=== PATIENT | female | born 1985 | race Caucasian/White ===

== ENCOUNTER 2023-09-19 19:22 | Inpatient (IN) ==
[2023-09-19] MEDS ORDERED: LIDOCAINE 1% LOCAL 20 ML VIAL INFIL PRN (19:37)
[2023-09-19] MEDS ORDERED: OXYTOCIN 30 UNITS/NSS 30 UNITS/500 ML BAG IV PRN (19:37)
[2023-09-19] MEDS ORDERED: Patient's HEIGHT &/or WEIGHT Needed SCH (19:45)
[2023-09-19 20:07] LABS: Hematocrit (blood only) 34.9 % (37.0-47.0); Mean Corpuscular Hemoglobin 30.8 pg (25.0-34.0); Mean Corpuscular Hgb Conc 34.4 g/dL (32.0-36.0); Mean Corpuscular Volume 89.5 fL (80.0-100.0); Mean Platelet Volume 11.8 fL (9.4-12.4); Platelet Count 218 K/uL (130-400); RDW Coefficient of Variation 13.2 % (11.5-14.5); RDW Standard Deviation 43.2 fL (36.4-46.3); White Blood Count 9.57 K/ul (4.8-10.8)
[2023-09-19] MEDS: PENICILLIN GK 6 MU in DEXTROSE 5% 250 ML IV STA (20:13)
[2023-09-19] MEDS: LACTATED RINGER'S 1,000 ML IV PRN (20:13)
[2023-09-19] MEDS: miSOPROStoL 50 MCG TAB PO SCH (20:23)
[2023-09-19] MEDS ORDERED: SODIUM CHLORIDE 0.9% 250 ML IV PRN (20:36)
[2023-09-19] MEDS ORDERED: miSOPROStoL 50 MCG TAB PO SCH (21:00)
[2023-09-20] MEDS: PENICILLIN GK 3 MU in DEXTROSE 5% 100 ML IV PRN (00:05)
[2023-09-20] MEDS: DINOPROSTONE 10 MG INSERT PV ONE (01:07)
[2023-09-20] MEDS: BUTORPHANOL TARTRATE 2 MG/ML VIAL IV PRN (01:36)
[2023-09-20] MEDS: BUTORPHANOL TARTRATE 2 MG/ML VIAL ONE (01:45)
[2023-09-20] MEDS: LABETALOL HCL 100 MG TAB PO SCH (03:45)
[2023-09-20] MEDS: miSOPROStoL 50 MCG TAB PO ONE (11:04)
--- NOTE | 2023-09-20 15:36 | Obstetrical Progress Note ---
Date of Service September 20, 2023 Assessment & Plan (1) Rupture of membranes with delay of delivery: Plan reviewed heart rate tracing and contraction pattern. plan of care for cytotec administration Admission and Anticipated Discharge Date Admission Date: September 19, 2023 Subjective reviewed heart rate tracing and contraction pattern. plan of care for cytotec administration Results & Data Vital Signs (Past 12 Hours) Vital Signs Temp Pulse Resp BP 09/20/23 15:00 18 09/20/23 15:00 18 09/20/23 14:30 18 09/20/23 14:30 18 09/20/23 14:12 86 132/87 09/20/23 14:00 18 09/20/23 14:00 18 09/20/23 13:20 18 09/20/23 13:20 36.8 C 18 09/20/23 13:00 18 09/20/23 13:00 18 09/20/23 12:00 18 09/20/23 12:00 18 09/20/23 11:45 77 144/85 H 09/20/23 11:30 18 09/20/23 11:30 18 09/20/23 11:08 83 123/78 09/20/23 11:00 18 09/20/23 11:00 18 09/20/23 10:49 18 09/20/23 10:49 36.8 C 18 09/20/23 10:30 18 09/20/23 10:30 18 09/20/23 10:00 18 09/20/23 10:00 09/20/23 09:54 75 151/99 H 09/20/23 09:30 18 09/20/23 09:30 18 09/20/23 09:01 80 135/90 09/20/23 09:00 18 09/20/23 09:00 18 09/20/23 08:30 18 09/20/23 08:30 18 09/20/23 08:00 18 09/20/23 08:00 36.6 C 18 09/20/23 07:26 76 135/94 09/20/23 05:12 83 136/96 09/20/23 04:41 82 154/99 H 09/20/23 04:11 82 152/100 H 09/20/23 03:45 36.4 C L 09/20/23 03:41 97 H 157/109 H
[2023-09-21] MEDS: LIDOCAINE 2%/EPINEPHRINE 1:200,000 20 ML PF ONE (00:46)
[2023-09-21] MEDS: SODIUM CHLORIDE 0.9% PF INJ 10 ML VIAL ONE (00:46)
[2023-09-21] MEDS: BUPIVACAINE 0.25% PF 30 ML VIAL ONE (00:46)
[2023-09-21] MEDS: fentANYL 2 MCG/ML BUPIVacaine 0.125%-NSS 100ML BAG ONE (00:49)
--- NOTE | 2023-09-21 00:56 | Anesthesiology Consultation ---
Date of Service September 21, 2023 Assessment & Plan Chart Review Chart Review: Patient NOT seen in Pre Admission Testing and Acceptable Risk for Labor Epidural Consults Requested none ASA ASA2 Proposed Anesthesia Anesthesia Type: Labor Epidural Risk / Benefits Reviewed With: PT / POA / Parent / Guardian, Accepts Plan and Informed Consent Obtained Additional Notes Patient had labs at [facility] this week. She has a diagnosis of type I vWBD since 2008. She denies recent history of mucocutaneous bleeding (gums/nose). She has never had a DDAVP challenge and does not routinely receive DDAVP for procedures. Labs from [facility] showed no quantitative deficiency in vWB factor or prolongation of the PTT, as is common during . Discussed risks and benefits of epidural anesthesia with the patient, given her current normal vWB labs, I do not feel that she is at increased risk of epidural hematoma and the patient agrees to proceed with epidural labor analgesia. History Height/Weight Height: 5 ft 5 in Weight: 86.183 kg Allergies Allergy/AdvReac Type Severity Reaction Status Date / Time sulfamethoxazole Allergy Rash Verified 09/19/23 19:43 [From Bactrim] trimethoprim [From Bactrim] Allergy Rash Verified 09/19/23 19:43 Medications Home Medications Medication Instructions Recorded Confirmed Last Taken [id number] 1 mg 1 tab PO DAILY 09/19/22 09/19/23 09/19/23 tablet sertraline 50 mg tablet (Zoloft) 100 mg PO DAILY 09/19/22 09/19/23 09/17/23 clobetasol 0.05 % scalp solution topical 1XD PRN Outbreak 09/15/23 09/10/23 20:00 diphenhydramine HCl 25 mg capsule 25 mg PO HS PRN Sleep 09/15/23 09/19/23 09/18/23 (Benadryl) docusate sodium 100 mg capsule 100 mg PO DAILY 09/15/23 09/19/23 09/19/23 (Colace) magnesium oxide 500 mg capsule 500 mg PO DAILY 09/15/23 09/19/23 09/18/23 omeprazole 20 mg capsule,delayed 20 mg PO DAILY 09/15/23 09/19/23 09/19/23 release Active Medications Generic Name Dose Route Start Last Admin Trade Name Freq PRN Reason Stop Dose Admin Butorphanol Tartrate 1 mg 09/20/23 01:09 09/20/23 22:37 Butorphanol Tartrate 2 Mg/Ml Vial IV 10/20/23 01:08 1 mg Q2HWA PRN Administration Pain Lactated Ringer's 1,000 mls @ 125 mls/hr 09/19/23 19:37 09/20/23 00:08 Lr IV 09/21/23 19:36 125 mls/hr .Q8H PRN Infusion L&D Protocol Protocol Penicillin G Potassium 3 mu/ 106 mls @ 100 mls/hr 09/19/23 22:37 09/20/23 22:16 Dextrose IV 09/29/23 22:36 100 mls/hr Q4H PRN Administration GBS(+) Until Delivery Labetalol HCl 100 mg 09/20/23 03:40 09/20/23 20:54 Labetalol Hcl 100 Mg Tab PO 10/20/23 03:39 100 mg BID DONNIE Administration Misoprostol 50 mcg 09/19/23 20:00 09/20/23 19:49 Misoprostol 50 Mcg Tab PO 10/19/23 19:59 50 mcg Q4H DONNIE Administration Past Medical History Medical History (Updated 09/20/23 @ 15:39 by Shantanu Sanchez MD) Psoriasis Von Willebrand disease Exercise / Class Metabolic Activity II 4-5 Yardwork/Stairs/Walk up hill Past Family History Family History Grandfather (Paternal) Diabetes Grandfather (Maternal) Hypertension Grandfather (Paternal) Hypertension Grandmother (Paternal) Hypertension Past Surgical History Surgical History H/O wisdom tooth extraction Past Anesthesia History No Hx of Anesthesia Complications and No Family Hx of Anesthesia Complications History of PONV No Hx of PONV and No Hx of Motion Sickness Social History Smoking Status: Never smoker Hx Alcohol Use: No Hx Substance Use: No substance use type: does not use Physical Exam Vital Signs Last Vital Signs Temp 36.7 C 09/20/23 23:26 Pulse 93 H 09/21/23 00:51 Resp 18 09/20/23 21:00 BP 140/91 09/21/23 00:51 Pulse Ox 97 09/21/23 00:49 ENMT Mouth: no dentition abnormality Thyromental Distance: > or= 3.5 Finger Breadths Mallampati Class: II Neck normal visual inspection Respiratory normal respiratory effort Auscultation: lungs clear to auscultation bilaterally Cardiovascular Rate/Rhythm: regular rate and regular rhythm Psychiatric Orientation: alert Testing Laboratory Results 09/19/23 19:52 Blood Type A Negative 09/19/23 19:52 Antibody Screen NEGATIVE 09/19/23 19:52
[2023-09-21] MEDS ORDERED: DESMOPRESSIN ACETATE 20 MCG in SODIUM CHLORIDE 0.9% 50 ML IV PRN (01:01)
[2023-09-21] MEDS: fentaNYL citrate PF 100 MCG/2 ML VIAL ONE (01:04)
[2023-09-21] MEDS: ePHEDrine sulfate 50 MG/ML AMP ONE (01:04)
[2023-09-21] MEDS ORDERED: fentANYL 2 MCG/ML BUPIVacaine 0.125%-NSS 100ML BAG EPI PRN (01:06)
[2023-09-21] MEDS ORDERED: NALOXONE HCL 1 MG in SODIUM CHLORIDE 0.9% 1,000 ML IV PRN (01:06)
[2023-09-21] MEDS ORDERED: ROPIVACAINE 0.5% PF 5 MG/ML 20 ML VIAL EPI PRN (01:06)
[2023-09-21] MEDS ORDERED: NALOXONE HCL 0.4 MG/1 ML VIAL/CARP IV PRN (01:06)
[2023-09-21] MEDS ORDERED: LIDOCAINE 2% MPF LOCAL 5 ML VIAL EPI PRN (01:06)
[2023-09-21] MEDS ORDERED: BUPIVACAINE 0.25% PF 30 ML VIAL EPI PRN (01:06)
[2023-09-21] MEDS ORDERED: NALBUPHINE HCL 5 MG in SYRINGE 0 ML IV PRN (01:06)
[2023-09-21] MEDS ORDERED: fentaNYL citrate PF 100 MCG/2 ML VIAL EPI PRN (01:06)
[2023-09-21] MEDS ORDERED: ePHEDrine sulfate 50 MG/ML AMP IV PRN (01:06)
[2023-09-21] MEDS ORDERED: diphenhydrAMINE 50 MG/ML VIAL IV PRN (01:06)
[2023-09-21] MEDS ORDERED: SODIUM CHLORIDE 0.9% PF INJ 10 ML VIAL EPI PRN (01:06)
[2023-09-21] MEDS: OXYTOCIN 30 UNITS/NSS 30 UNITS/500 ML BAG IV PRN (01:51)
[2023-09-21] MEDS ORDERED: ACETAMINOPHEN W/CODEINE #3 1 TAB PO PRN (09:05)
[2023-09-21] MEDS ORDERED: OXYTOCIN 30 UNITS/NSS 30 UNITS/500 ML BAG IV PRN (09:05)
[2023-09-21] MEDS ORDERED: bisacodyL 10 MG SUPP PR PRN (09:05)
[2023-09-21] MEDS ORDERED: oxyCODONE/ACETAMINOPHEN 5mg/325mg TAB PO PRN (09:05)
[2023-09-21] MEDS ORDERED: HYDROCORTISONE ACETATE 25 MG SUPP PR PRN (09:05)
--- NOTE | 2023-09-21 09:12 | Delivery Summary ---
Vaginal Delivery Summary Date of Service September 21, 2023 Vaginal Delivery Summary Patient has been followed in the office for care and delivery. She has had an uncomplicated course. She is well dated with a first trimester ultrasound. She was in and out of labor for several days until finally rupturing her membranes. She was sent to maternity membrane rupture was confirmed by an amnio sure. She was 39 weeks. An induction was undertaken. She first had a dose of oral Cytotec. Followed by Cervidil tape. Followed several doses of oral Cytotec. She eventually got about 4 cm dilated requested and received epidural for pain control. Membranes ruptured's had ruptured spontaneously. She was augmented with IV Pitocin. Went to full dilatation. Pushed out a live male with about 1 hour pushing. Delivered direct occiput anterior position over an intact perineum. Infant was suctioned. Shoulders were delivered without difficulty. Cord was allowed to pulse for 1 full minute. Cord was then clamped and cut by the father. Cord blood was taken. With IV Pitocin running the placenta was removed intact. Inspection of the perineum and vagina revealed a left-sided superficial sulcus tear at about 4:00. The top of the tear was identified. And then sutured with a running 2-0 Vicryl out to beyond the hymenal ring. Following this hemostasis was excellent. Sponges were removed. Estimated blood loss was 100 mL.
[2023-09-21] MEDS: BENZOCAINE 20% SPRY 85 APPLN/85 GM CAN EXT PRN (10:11)
[2023-09-21] MEDS: IBUPROFEN 600 MG TAB PO PRN (10:11)
[2023-09-21] MEDS: SODIUM CHLORIDE 0.9% PF INJ 10 ML VIAL EPI STA (10:16)
[2023-09-21] MEDS: LIDOCAINE 2%/EPINEPHRINE 1:200,000 20 ML PF EPI STA (10:16)
[2023-09-21] MEDS: BUPIVACAINE 0.25% PF 30 ML VIAL EPI STA (10:16)
[2023-09-21] MEDS: fentaNYL citrate PF 100 MCG/2 ML VIAL EPI STA (10:16)
[2023-09-21] MEDS ORDERED: Nursing to Pharmacy Communication SCH (10:30)
[2023-09-21] MEDS ORDERED: SERTRALINE HCL 100 MG TABLET PO SCH (10:30)
--- NOTE | 2023-09-21 11:19 | Anesthesia Procedure Note ---
Date of Service September 21, 2023 Anesthesia Post Epidural Note Vital Signs Vital Signs: Temp Pulse Resp BP Pulse Ox 36.9 C 98 H 20 135/81 86 L 09/21/23 10:27 09/21/23 10:57 09/21/23 10:57 09/21/23 10:57 09/21/23 08:47 Pain Intensity Abdomen: Pain Intensity: 0 Notes Mental Status: alert / awake / arousable and participated in evaluation Nausea / Vomiting: adequately controlled Pain: adequately controlled Airway Patency, RR, SpO2: stable & adequate BP & HR: stable & adequate Hydration State: stable & adequate Neuraxial Anesthesia: was administered and sensory block resolved Anesthetic Complications: no major complications apparent and Pt Satisfied with anesthetic care Epidural: Removed without complications and With tip intact
[2023-09-21] MEDS: PANTOprazole 40 MG TAB PO SCH (12:53)
[2023-09-21] MEDS: LIDOCAINE 2% JELLY 5 ML TUBE EXT ONE (13:58)
[2023-09-21] MEDS: ACETAMINOPHEN 325 MG TAB PO PRN (17:47)
[2023-09-21] MEDS: DOCUSATE SODIUM 100 MG CAP PO SCH (21:30)
[2023-09-21] MEDS: SERTRALINE HCL 100 MG TABLET PO SCH (21:47)
[2023-09-22 06:32] LABS: Hematocrit (blood only) 31.4 % (37.0-47.0); Hemoglobin 10.4 g/dl (12.0-16.0); Mean Corpuscular Hemoglobin 30.2 pg (25.0-34.0); Mean Corpuscular Hgb Conc 33.1 g/dL (32.0-36.0); Mean Corpuscular Volume 91.3 fL (80.0-100.0); Mean Platelet Volume 11.7 fL (9.4-12.4); Platelet Count 195 K/uL (130-400); RDW Coefficient of Variation 13.6 % (11.5-14.5); RDW Standard Deviation 45.2 fL (36.4-46.3); Red Blood Count 3.44 M/uL (4.20-5.40); White Blood Count 10.23 K/ul (4.8-10.8)
[2023-09-22] MEDS: PRENATAL VITAMIN 1 TAB PO SCH (08:34)
--- NOTE | 2023-09-22 09:48 | Obstetrical Progress Note ---
Date of Service September 22, 2023 Assessment & Plan Admission and Anticipated Discharge Date Admission Date: September 19, 2023 Subjective abdomen soft and non tender no calf tenderness ambulating well will remove catheter this am vaginal bleeding scant hgb 10.4 Results & Data Vital Signs (Past 12 Hours) Vital Signs Temp Pulse Resp BP Pulse Ox O2 Del Method 09/22/23 08:33 118/87 09/22/23 08:30 36.7 C 09/22/23 05:00 36.7 C 89 18 104/72 98 Room Air 09/21/23 23:30 36.5 C 96 H 18 104/73 99 Room Air
[2023-09-22] MEDS: MEASLES, MUMPS & RUBELLA VIRUS VACCINE (MMR) VIAL SQ ONE (20:35)
[2023-09-22] MEDS: DIPHTHER/TETAN/PERTUS Vaccine (Tdap, Adol/Adult) 0.5mL IM ONE (20:35)
[2023-09-22] MEDS: bisacodyL 5 MG TABEC PO SCH (20:41)
[2023-09-23 06:41] LABS: Hematocrit (blood only) 28.7 % (37.0-47.0); Hemoglobin 9.6 g/dl (12.0-16.0)
--- NOTE | 2023-09-23 09:24 | Obstetrical Progress Note ---
Date of Service September 23, 2023 Assessment & Plan Admission and Anticipated Discharge Date Admission Date: September 19, 2023 Subjective abdomen soft and non tender no calf tenderness ambulating well vaginal bleeding scant hgb 9.6 Results & Data Vital Signs (Past 12 Hours) Vital Signs Temp Pulse Resp BP Pulse Ox O2 Del Method 09/23/23 08:10 36.8 C 84 16 129/88 99 Room Air 09/22/23 23:00 36.9 C 88 20 111/77 97 Room Air
== END 2023-09-23 12:43 | disposition home or self-care (01) | DRG 807 ==
LOC: 4S1 19:22 → OPB 19:22 → 4S1 19:37 → 4E2 09-21 14:32

== ENCOUNTER 2023-10-15 21:44 | Observation (INO) ==
[2023-10-15] MEDS: ONDANSETRON INJ 2 MG/ML 2 ML VIAL IV STA (22:06)
[2023-10-15 22:37] LABS: Basophils # (auto) 0.03 K/uL (0.00-0.20); Basophils % (auto) 0.4 %; Eosinophils # (auto) 0.17 K/uL (0.00-0.50); Eosinophils % (auto) 2.3 %; Hematocrit (blood only) 39.8 % (37.0-47.0); Hemoglobin 13.2 g/dl (12.0-16.0); Immature Granulocytes # (auto) 0.02 K/uL (0.01-0.20); Immature Granulocytes % (auto) 0.3 %; Lymphocytes # (auto) 1.45 K/uL (1.20-3.40); Lymphocytes % (auto) 19.3 %; Mean Corpuscular Hemoglobin 29.3 pg (25.0-34.0); Mean Corpuscular Hgb Conc 33.2 g/dL (32.0-36.0); Mean Corpuscular Volume 88.2 fL (80.0-100.0); Mean Platelet Volume 10.3 fL (9.4-12.4); Monocytes # (auto) 0.72 K/uL (0.11-0.59); Monocytes % (auto) 9.6 %; Neutrophils # (auto) 5.12 K/uL (1.40-6.50); Neutrophils % (auto) 68.1 %; Platelet Count 256 K/uL (130-400); RDW Standard Deviation 38.8 fL (36.4-46.3); Red Blood Count 4.51 M/uL (4.20-5.40); White Blood Count 7.51 K/ul (4.8-10.8)
--- NOTE | 2023-10-15 22:40 | Emergency Department Note ---
History of Present Illness General Chief complaint: Abdominal Pain Stated complaint: ABD PAIN, 3 WKS POSTPARTOM, VOMIT Time Seen by Provider: 10/15/23 22:25 History of Present Illness Maximum Pain Intensity: 9 This is a 38-year-old female presenting to the emergency department for evaluation of epigastric abdominal pain. The patient is 3 weeks and had vomiting today which exacerbated her symptoms. The patient was seen in this department 2 days ago with identical complaints where blood work and CT of the chest, abdomen, and pelvis did not show distinct cause of her symptoms. She did feel well at the time of discharge, and did not have any return of symptoms until today. Patient is scheduled in 2 days with her PCP. Patient did take Tylenol today without any relief of her epigastric pain. She is not having any lower pain. No fevers or chills. She has some mild vaginal discharge that is essentially been normal since her uncomplicated delivery. Patient rates her current discomfort a 9/10. Home Medications Medication Instructions Recorded Confirmed Type diphenhydramine HCl 25 mg capsule 25 mg PO HS PRN Sleep 09/15/23 10/15/23 History (Benadryl) docusate sodium 100 mg capsule 100 mg PO DAILY 09/15/23 10/15/23 History (Colace) magnesium oxide 500 mg capsule 500 mg PO DAILY 09/15/23 10/15/23 History omeprazole 20 mg capsule,delayed 20 mg PO DAILY 09/15/23 10/15/23 History release clobetasol 0.05 % scalp solution 1 applic topical BID PRN Itching 10/12/23 10/15/23 History dicloxacillin 500 mg capsule 500 mg PO Q6 10/12/23 10/15/23 History vits no.130-ferrous fum 1 tab PO DAILY 10/12/23 10/15/23 History 27 mg iron-folic acid 800 mcg tablet ( Vitamin) sertraline 100 mg tablet 100 mg PO DAILY 10/15/23 10/15/23 History Allergies Allergy/AdvReac Type Severity Reaction Status Date / Time sulfamethoxazole Allergy Intermediate Rash Verified 10/15/23 22:56 [From Bactrim] trimethoprim [From Bactrim] Allergy Intermediate Rash Verified 10/15/23 22:56 Past Med/Surg History Medical History Psoriasis Von Willebrand disease Surgical History H/O wisdom tooth extraction Family History Grandfather (Paternal) Diabetes Grandfather (Maternal) Hypertension Grandfather (Paternal) Hypertension Grandmother (Paternal) Hypertension Social History Smoking Status: Never smoker Second Hand Exposure: No; Hx Alcohol Use: Yes Hx Substance Use: No Preferred Language: Upper Sorbian Communication Ability: Effective 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 Lasting Required: No Beliefs That Will Affect Care: None marital status: Current Living Situation: Spouse Current Living Situation Comment: Lives with Sebastián, 2 cats and a dog current occupational status: unemployed Feels Safe at Home: Yes Safety Concerns: Feels Safe At This Time Diet: regular Gender Identity: Female Assistive Devices: None Review of Systems A total of 10 systems reviewed and were otherwise negative Physical Exam Vital Signs Vital Signs - 24 hr 10/15/23 21:46 10/15/23 22:24 10/15/23 22:32 Temperature 36.9 C Temperature Source Oral Pulse Rate 84 74 Pulse Rate [Apical] 72 Pulse Rhythm Regular Pulse Strength Normal Respiratory Rate 20 18 Respiratory Effort / Characteristics Non-Labored Spontaneous Non-Labored Respiratory Depth Normal Normal Respiratory Pattern Regular Blood Pressure 127/91 Blood Pressure [Left Arm] 135/91 Blood Pressure Mean 103 Blood Pressure Mean [Left Arm] 105 Blood Pressure Position Sitting Pulse Oximetry 98 99 Oxygen Delivery Method Room Air Room Air Sepsis Recent Fever Within 48 Hours No Sepsis New/Unexplained Change in Mental Status N/A Sepsis Action Taken by Nursing No Action Required 10/16/23 00:24 10/16/23 00:42 10/16/23 02:00 Temperature Temperature Source Pulse Rate Pulse Rate [Apical] 82 78 62 Pulse Rhythm Pulse Strength Respiratory Rate 18 20 18 Respiratory Effort / Characteristics Non-Labored Non-Labored Non-Labored Respiratory Depth Normal Normal Normal Respiratory Pattern Regular Regular Regular Blood Pressure Blood Pressure [Left Arm] 123/87 123/87 127/89 Blood Pressure Mean Blood Pressure Mean [Left Arm] 99 99 101 Blood Pressure Position Pulse Oximetry 97 97 98 Oxygen Delivery Method Room Air Room Air Room Air Sepsis Recent Fever Within 48 Hours Sepsis New/Unexplained Change in Mental Status Sepsis Action Taken by Nursing VITALS: Vitals are noted on the nurse's note and reviewed by myself. Vital signs stable. GENERAL: Well-developed, well-nourished, white female, who is in no acute distress and resting comfortably. Patient is cooperative with the examination. HEAD: Normocephalic atraumatic. HEART: Regular rate and rhythm without murmurs gallops or rubs. LUNGS: Clear to auscultation bilaterally without wheezes, rales or rhonchi. No retractions or accessory muscle use. ABDOMEN: Positive normal bowel sounds x 4. Soft, with mild epigastric tenderness. No rebound or guarding. No lower tenderness. MUSCULOSKELETAL: No muscle atrophy, erythema, or edema noted. Full range of motion in all extremities. Course Administered Medications Sodium Chloride (Nss) 1,000 mls @ 125 mls/hr IV .Q8H [facility] Stop: 11/15/23 01:29 Last Admin: 10/16/23 01:49 Dose: 125 mls/hr Documented By: LILIA Morphine Sulfate (Morphine Sulfate 4 Mg/Ml 1 Ml Carp\Vial) 4 mg IV Q30M PRN PRN Reason: Pain Stop: 10/29/23 22:50 Last Admin: 10/15/23 23:14 Dose: 4 mg Documented By: LILIA Discontinued Medications Al Hydrox/Mg Hydrox/Simethicone (Aluminum/Magnesium Susp 30 Ml Udc) 30 ml PO NOW STA Stop: 10/15/23 22:35 Last Admin: 10/15/23 22:45 Dose: 30 ml Documented By: LILIA Sodium Chloride (Nss) 1,000 mls @ 999 mls/hr IV .Q1H1M DONNIE Stop: 10/15/23 23:45 Last Infusion: 10/16/23 00:10 Dose: Infused Documented By: Admin: 10/15/23 22:45 Dose: 999 mls/hr Documented By: LILIA Pantoprazole Sodium 40 mg/ (Syringe) 10 mls @ 5 mls/min IV NOW ONE Stop: 10/15/23 22:35 Last Admin: 10/15/23 22:45 Dose: 5 mls/min Documented By: LILIA Piperacillin Sod/Tazobactam Sod (Zosyn) 4.5 gm in 100 mls @ 200 mls/hr IV NOW ONE Stop: 10/16/23 00:58 Last Infusion: 10/16/23 02:22 Dose: Infused Documented By: Admin: 10/16/23 01:49 Dose: 200 mls/hr Documented By: LILIA Ketorolac Tromethamine (Ketorolac 30 Mg/Ml Vial) 30 mg IV NOW STA Stop: 10/15/23 22:35 Last Admin: 10/15/23 22:45 Dose: 30 mg Documented By: LILIA Ondansetron HCl (Ondansetron Inj 2 Mg/Ml 2 Ml Vial) 4 mg IV NOW STA Stop: 10/15/23 21:50 Last Admin: 10/15/23 22:06 Dose: 4 mg Documented By: LILIA Medical Decision Making Differential Diagnosis Differential diagnosis: Etiologies such as biliary colic, cholecystitis, hepatitis, pancreatitis, cardiac disease, pancreatitis, gastritis, peptic ulcer disease, appendicitis, cystitis, diverticulitis, mesenteric ischemia, inflammatory bowel disease, ileus, bowel obstruction, testicular/adnexal torsion, aortic pathology, shingles, as well as others were considered Laboratory Data 10/15/23 22:07 10/15/23 22:07 Lab Results 10/15/23 10/16/23 Range/Units 22:07 Unknown WBC 7.51 (4.8-10.8) K/ul RBC 4.51 (4.20-5.40) M/uL Hgb 13.2 (12.0-16.0) g/dl Hct 39.8 (37.0-47.0) % MCV 88.2 (80.0-100.0) fL MCH 29.3 (25.0-34.0) pg MCHC 33.2 (32.0-36.0) g/dL RDW Std Deviation 38.8 (36.4-46.3) fL RDW Coeff of Oswaldo 12.0 (11.5-14.5) % Plt Count 256 (130-400) K/uL MPV 10.3 (9.4-12.4) fL Immature Gran % (Auto) 0.3 % Neut % (Auto) 68.1 % Lymph % (Auto) 19.3 % Kings % (Auto) 9.6 % Eos % (Auto) 2.3 % Baso % (Auto) 0.4 % Neut # (Auto) 5.12 (1.40-6.50) K/uL Lymph # (Auto) 1.45 (1.20-3.40) K/uL Kings # (Auto) 0.72 H (0.11-0.59) K/uL Eos # (Auto) 0.17 (0.00-0.50) K/uL Baso # (Auto) 0.03 (0.00-0.20) K/uL Immature Gran # (Auto) 0.02 (0.01-0.20) K/uL Sodium 139 (136-145) mmol/L Potassium 3.7 (3.5-5.1) mmol/L Chloride 103 (98-107) mmol/L Carbon Dioxide 26 (21-32) mmol/L Anion Gap 10 (3-11) BUN 13 (6-23) mg/dl Creatinine 0.99 (0.6-1.2) mg/dl Est Cr Clr Drug Dosing 70.7 ml/min Est GFR ( Amer) 85.0 ml/min Est GFR (Non-Af Amer) 73.3 ml/min BUN/Creatinine Ratio 13.1 (10-20) Glucose 128 H (70-99(Fasting)) mg/dl Calcium 9.6 (8.6-10.3) mg/dl Total Bilirubin 0.9 (0.2-1.0) mg/dl AST 390 H (13-39) U/L ALT 220 H (7-52) U/L Alkaline Phosphatase 502 H (34-104) U/L Total Protein 7.6 (6.0-8.3) gm/dl Albumin 4.4 (3.4-5.0) gm/dl Globulin 3.2 (2.5-4.0) gm/dl Albumin/Globulin Ratio 1.4 (0.9-2) Lipase 165 H (11-82) U/L Urine Color Dark Yellow Urine Appearance Cloudy A (Clear) Urine pH 7.0 (4.5-7.5) Ur Specific Usk 1.023 (1.000-1.030) Urine Protein Trace H (Negative) Urine Glucose (UA) Negative (Negative) Urine Ketones Trace H (Negative) Urine Blood 2+ H (Negative) Urine Nitrite Negative (Negative) Urine Bilirubin Negative (Negative) Urine Urobilinogen Negative (Negative) Ur Leukocyte Esterase 3+ H (Negative) Urine WBC (Auto) >30 H (0-5) /hpf Urine RBC (Auto) 0-4 (0-4) /hpf U Hyaline Cast (Auto) 0 (0-5) /lpf U Epithel Cells (Auto) >30 H (0-5) /lpf Urine Bacteria (Auto) 1+ H (Negative) Urine Yeast Not Reportable Urine Opiates Screen Neg (Neg) Ur Methadone, Qual Neg (Neg) Urine Barbiturates Neg (Neg) Ur Phencyclidine (PCP) Neg (Neg) U Amphetamin/Meth Scrn Neg (Neg) MDMA (Ecstasy) Screen Neg (Neg) U Benzodiazepines Scrn Neg (Neg) Ur Cocaine Metabolite Neg (Neg) U Marijuana (THC) Screen Neg (Neg) Imaging Data Radiologist's Impression: Liver Ultrasound 10/15/23 22:51 Exam(s): US ABDOMEN LIMITED EXAM: US Abdomen Limited, Right Upper Quadrant CLINICAL HISTORY: Reason for exam: epigastric pain, elevated lft, post . TECHNIQUE: Real-time ultrasound of the right upper quadrant with image documentation. COMPARISON: No relevant prior studies available. FINDINGS: Liver: Unremarkable. No mass. No intrahepatic bile duct dilation. Gallbladder: Gallstones. A few small scattered gallbladder polyps. Mild gallbladder wall thickening at 3 mm. Small amount of pericholecystic fluid. Common bile duct: Unremarkable as visualized. No stones. No dilation. Pancreas: Unremarkable as visualized. Right kidney: No stones. No solid mass. No hydronephrosis. IMPRESSION: Gallstones with mild gallbladder wall thickening and pericholecystic fluid. The findings are concerning for acute cholecystitis. Electronically signed by: Isaías Lockwood MD 10/16/23 00:14 AM Cholangiopancreatography MRI 10/16/23 00:24 Exam(s): MRI MRCP EXAM: MR Abdomen Without Intravenous Contrast, MRCP Protocol CLINICAL HISTORY: Reason for exam: elevated lfts, acute amanda on u/s. TECHNIQUE: Multiplanar magnetic resonance images of the abdomen without intravenous contrast using MRCP protocol. COMPARISON: No relevant prior studies available. FINDINGS: Bile ducts: Unremarkable. No stones. No ductal dilation. Gallbladder: Numerous small gallstones. Abnormal gallbladder wall edema and trace amount of pericholecystic fluid. Liver: Unremarkable. Pancreas: Unremarkable. No ductal dilation. Spleen: Unremarkable. No splenomegaly. Adrenals: Unremarkable. No mass. Kidneys and ureters: Unremarkable. No hydronephrosis. Stomach and bowel: Unremarkable. No obstruction. IMPRESSION: Gallstones with gallbladder wall edema and small amount of pericholecystic fluid. The findings are very concerning for acute cholecystitis. No bile duct dilatation. Electronically signed by: Isaías Lockwood MD 10/16/23 02:18 AM MDM Narrative Physical exam and history were performed. Nursing notes, EMR, and Medication List were personally reviewed. No social concerns were identified as barriers to patients care. Patient appears to have upper abdominal pain bringing her to the ER. IV access was established and labs were obtained. Patient was hydrated with normal saline and given IV Zofran, IV Toradol, IV Protonix, and a GI cocktail. Patient's blood work is as above and was reviewed. She does not have a significantly elevated white blood cell count, gross anemia, bandemia, or significant electrolyte imbalance. Transaminases are notably elevated with an AST of 390, ALT 220, and alk phos of 502. This is significantly worse than a few days ago at previous visit. Lipase is 165. Because of her symptoms and labs she was sent to ultrasound for further evaluation. Patient's ultrasound was reviewed by myself and radiology and is concerning for acute cholecystitis. I did reach out to both the on-call surgical team and the on-call hospitalist team. Recommendation was for MRCP which does confirm the cholecystitis. The patient was given Zosyn here in the ER, as well as as needed morphine. Please see the hospitalist team and surgical team dictations for further patient course, plan, disposition. The chart was completed utilizing [employer] Speech Voice Recognition Software. Grammatical errors, random word insertions, pronoun errors, and incomplete sentences are an occasional consequence of this system due to software limitations, ambient noise, and hardware issues. Any formal questions or concerns about the content, text, or information contained within the body of this dictation should be directly addressed to the provider for clarification. . Impression & Plan Cholecystitis, Abdominal pain Discharge Plan Visit Data Chief Complaint: Abdominal Pain Stated Complaint: ABD PAIN, 3 WKS POSTPARTOM, VOMIT ED Provider: Dillan Lee ED Midlevel Provider: Preston Garcia Discharge Problem: Cholecystitis, Abdominal pain Forms Stand Alone Forms: My [facility] Prescriptions Prescriptions: No Action diphenhydramine HCl [Benadryl] 25 mg Capsule 25 mg PO HS PRN (Reason: Sleep) docusate sodium [Colace] 100 mg Capsule 100 mg PO DAILY omeprazole 20 mg Capsule,Delayed Release(Dr/Ec) 20 mg PO DAILY magnesium oxide 500 mg Capsule 500 mg PO DAILY dicloxacillin 500 mg capsule 500 mg PO Q6 Rx Instructions: STARTED 10/09/23 FOR 14 DAYS. clobetasol 0.05 % solution 1 applic TOPICAL BID PRN (Reason: Itching) Vitamin 27 mg iron- 800 mcg tablet 1 tab PO DAILY sertraline 100 mg tablet 100 mg PO DAILY Referrals Referrals: Britni Loredo DO [Primary Care Provider] -
[2023-10-15] MEDS: PANTOprazole 40 MG in SYRINGE 0 ML IV ONE (22:45)
[2023-10-15] MEDS: ALUMINUM/MAGNESIUM SUSP 30 ML UDC PO STA (22:45)
[2023-10-15] MEDS: KETOROLAC 30 MG/ML VIAL IV STA (22:45)
[2023-10-15] MEDS: SODIUM CHLORIDE 0.9% 1,000 ML IV SCH (22:45)
[2023-10-15 22:46] LABS: Albumin Globulin Ratio 1.4 (0.9-2); Albumin Level 4.4 gm/dl (3.4-5.0); BUN Creatinine Ratio 13.1 (10-20); Bilirubin,Total 0.9 mg/dl (0.2-1.0); Calcium 9.6 mg/dl (8.6-10.3); Creatinine Clr Calc Pharmacy 70.7 ml/min; Est GFR (Non-African American) 73.3 ml/min; Globulin 3.2 gm/dl (2.5-4.0); Potassium 3.7 mmol/L (3.5-5.1); Total Protein 7.6 gm/dl (6.0-8.3)
[2023-10-15] MEDS: MoRPHine SULFATE 4 MG/ML 1 ML CARP\\VIAL IV PRN (23:14)
--- NOTE | 2023-10-16 00:15 | Ultrasound Report ---
Exam(s): US ABDOMEN LIMITED EXAM: US Abdomen Limited, Right Upper Quadrant CLINICAL HISTORY: Reason for exam: epigastric pain, elevated lft, post . TECHNIQUE: Real-time ultrasound of the right upper quadrant with image documentation. COMPARISON: No relevant prior studies available. FINDINGS: Liver: Unremarkable. No mass. No intrahepatic bile duct dilation. Gallbladder: Gallstones. A few small scattered gallbladder polyps. Mild gallbladder wall thickening at 3 mm. Small amount of pericholecystic fluid. Common bile duct: Unremarkable as visualized. No stones. No dilation. Pancreas: Unremarkable as visualized. Right kidney: No stones. No solid mass. No hydronephrosis. IMPRESSION: Gallstones with mild gallbladder wall thickening and pericholecystic fluid. The findings are concerning for acute cholecystitis. Electronically signed by: Isaías Lockwood MD 10/16/23 00:14 AM
[2023-10-16 00:54] LABS: Appearance Urine Cloudy (Clear); Bacteria Urine Automated 1+ (Negative); Bilirubin Urine Negative (Negative); Blood Urine 2+ (Negative); Color Urine Dark Yellow; Epithelial Cell Urine Auto >30 /lpf (0-5); Glucose Urine UA Negative (Negative); Ketones Urine Trace (Negative); Leukocyte Esterase Urine 3+ (Negative); Nitrite Urine Negative (Negative); Protein Urine Trace (Negative); RBC Urine Automated 0-4 /hpf (0-4); Specific Gravity Urine 1.023 (1.000-1.030); Urobilinogen Urine Negative (Negative); WBC Urine Automated >30 /hpf (0-5)
[2023-10-16 01:03] LABS: Amphetamines+Metham, Urine Neg (Neg); Barbiturates, Urine Neg (Neg); Benzodiazepine, Urine Neg (Neg); Cocaine, Urine Neg (Neg); MDMA (Ecstacy), Urine Neg (Neg); Marijuana, Urine Neg (Neg); Methadone, Urine Neg (Neg); Opiate, Urine Neg (Neg); Phencyclidine, Urine Neg (Neg)
[2023-10-16 01:12] LABS: Cast Urine Automated 0 /lpf (0-5)
--- NOTE | 2023-10-16 01:16 | Surgery Consultation ---
Date of Consultation October 16, 2023 Assessment & Plan (1) Cholecystitis: I discussed the case with the treating clinician in the emergency department he has requested hospitalist admission for this patient. In light of the patient's rising LFTs the hospitalist have requested an MRCP be performed to evaluate for possible choledocholithiasis prior to admission being undertaken If patient is noted to have choledocholithiasis on her MRCP she will require transfer to a facility where ERCP services are available Would recommend keeping the patient n.p.o. Would recommend providing IV fluid for hydration Would recommend providing analgesics Would recommend providing antiemetics Would recommend initiating antibiotics in the form of Zosyn Would recommend repeating LFTs the morning of 10/16/2023 Does appear that the patient has a slight pancreatitis so we will repeat labs as noted above. In addition, we will keep the patient n.p.o. and provide IV fluid as stated above. Patient's MRCP is negative for choledocholithiasis she will likely require cholecystectomy. The patient does have a history of von Willebrand's disease and we we will alert the attending physician of this condition to see if hematology evaluation is needed prior to her undergoing cholecystectomy Would recommend utilizing SCDs for DVT prevention, no chemical means as she will likely need surgical or procedural intervention Additional recommendations be forthcoming based on her clinical course as unfolds Supervising Physician Co-Signing Physician Notes Patient is planned for laparoscopic cholecystectomy. The consent has been obtai kat and is on the chart. History of Present Illness Reason for Consultation: Cholecystitis History of Present Illness This is a 38-year-old female who is 3 weeks . The patient notes that predating her she was having some postprandial pain in her upper abd omen that would come and go in a random fashion and was not very severe. Since the patient has delivered her child she has been having worsening pain in her upper abdomen specifically noting it is in the entire upper abdomen in a bandlike fashion particularly in the right upper quadrant and epigastric areas. The patient was seen in the emergency department on 10/12/2023. During this emergency department visit the patient had labs and imaging which I independently reviewed. The patient had a CT scan of the abdomen pelvis which showed no infectious or inflammatory findings in the abdomen or pelvis, specifically noting an unremarkable gallbladder. Patient also had a CT scan of the chest that showed no evidence of pulmonary emboli or pneumonia. Labs during this visit included CBC with hemoglobin, hematocrit, white blood cell count, platelet count were all normal. Chemistry profile showed sodium was 140 with a potassium of 3.4. Her BUN and creatinine were normal. During this visit her bilirubin and ALT were noted to be normal. There was a slight elevation of her AST at 64 and her alkaline phosphatase was elevated at 196. The patient was felt to be stable for discharge home. The patient return to the emergency department due to persistent and worsening pain as described above. She notes that the pain does not radiate and she does not note any other modifying factors. She has had associated nausea and vomiting but she denies any fevers, shakes, or chills. She has never had any abdominal surgeries in the past. Since arrival to the hospital this evening the patient has had labs and imaging which independent reviewed. The patient did have a right upper quadrant abdominal ultrasound. This showed the patient had gallstones and some gallbladder polyps. There is gallbladder wall thickening with a gallbladder wall measuring 3 mm. There is also pericholecystic fluid noted and the interpreting radiologist felt that this represented acute cholecystitis. There is no dilatation of the common bile duct and there was no choledocholithiasis noted on this study. Labs included CBC her white blood cell count, hemoglobin, hematocrit, and platelet count were all normal. Chemistry profile showed sodium and potassium along with the BUN and creatinine were normal. The patient's total bilirubin was normal however her AST and ALT were elevated at 390 and 220 respectively. She also had an elevated alkaline phosphatase at 502. Patient in addition, has had a slight elevation of her lipase at 165. Urinalysis did show 3+ leukocyte Estrace. The urine specimen was negative for nitrites or pyuria. Concerning the patient's past medical history she does note a history of von Willebrand's disease that was diagnosed when she was in her 20s. She notes that this time she was experiencing easy bruisability which prompted hematology evaluation diagnosing this condition. Concerning past surgical history she has never had any surgery other than wisdom teeth extraction. Concerning social history she does not smoke Concerning family history there is no family history of gallbladder disease. At the time of my interview the patient was resting comfortably in bed and she was in no distress. Allergies Allergy/AdvReac Type Severity Reaction Status Date / Time sulfamethoxazole Allergy Intermediate Rash Verified 10/15/23 22:56 [From Bactrim] trimethoprim [From Bactrim] Allergy Intermediate Rash Verified 10/15/23 22:56 Home Medications Medication Instructions Recorded Confirmed Type diphenhydramine HCl 25 mg capsule 25 mg PO HS PRN Sleep 09/15/23 10/15/23 History (Benadryl) docusate sodium 100 mg capsule 100 mg PO DAILY 09/15/23 10/15/23 History (Colace) magnesium oxide 500 mg capsule 500 mg PO DAILY 09/15/23 10/15/23 History omeprazole 20 mg capsule,delayed 20 mg PO DAILY 09/15/23 10/15/23 History release clobetasol 0.05 % scalp solution 1 applic topical BID PRN Itching 10/12/23 10/15/23 History dicloxacillin 500 mg capsule 500 mg PO Q6 10/12/23 10/15/23 History vits no.130-ferrous fum 1 tab PO DAILY 10/12/23 10/15/23 History 27 mg iron-folic acid 800 mcg tablet ( Vitamin) sertraline 100 mg tablet 100 mg PO DAILY 10/15/23 10/15/23 History Patient History Medical History GERD (gastroesophageal reflux disease) Psoriasis Von Willebrand disease Surgical History H/O wisdom tooth extraction Family History Grandfather (Paternal) Diabetes Grandfather (Maternal) Hypertension Grandfather (Paternal) Hypertension Grandmother (Paternal) Hypertension Social History Smoking Status: Never smoker Second Hand Exposure: No; Hx Alcohol Use: Yes Hx Substance Use: No Preferred Language: Colombian Communication Ability: Effective Hearing Ability: Normal 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 Beliefs That Will Affect Care: None marital status: Current Living Situation: Spouse Current Living Situation Comment: Lives with Sebastián, 2 cats and a dog current occupational status: unemployed Feels Safe at Home: Yes Diet: regular Gender Identity: Female Assistive Devices: None Review of Systems Constitutional: no fever and no chills Eyes: + corrective lenses Ear, Nose, Mouth, Throat: no hearing loss Respiratory: no cough and no dyspnea Cardiovascular: no chest pain Gastrointestinal: as per Subjective / HPI Genitourinary: no dysuria Musculoskeletal: no back pain Integumentary: no rash Neurologic: no localized weakness Physical Exam Constitutional: WD/WN, vitals as above Eyes: + anicteric sclerae Wears glasses ENMT: Ears: no hearing impairment and no external ear abnormality Mouth: no oropharynx abnormality No sublingual jaundice noted Neck: trachea midline Respiratory: normal respiratory effort; no respiratory distress and no labored breathing Cardiovascular: Rate/Rhythm: regular rate and regular rhythm Gastrointestinal (Abdomen): Abdomen is soft and nondistended. There is no rebound tenderness or guarding. The patient did have some pain with palpation in the epigastric area as well as the right upper quadrant. Musculoskeletal: No calf tenderness Skin: no jaundice Neurologic: moves all extremities Psychiatric: A+Ox3, euthymic affect Results & Data Vital Signs (Past 12 Hours) Vital Signs Temp Pulse Pulse Resp BP BP Pulse Ox 10/16/23 00:42 78 20 123/87 97 10/16/23 00:24 82 18 123/87 97 10/15/23 22:32 74 10/15/23 22:24 72 18 135/91 99 10/15/23 21:46 36.9 C 84 20 127/91 98 O2 Del Method 10/16/23 00:42 Room Air 10/16/23 00:24 Room Air 10/15/23 22:32 10/15/23 22:24 Room Air 10/15/23 21:46 Room Air PG Care Time/CCT Total # of Minutes Spent Total Time Spent with Patient: Total time spent is greater than 50% in coordination of care (as documented) at patient's floor/unit and/or counseling patient: Coding Level of Care Code 46224 IN/OBS CONSULT LVL 5,80M Diagnoses Cholecystitis K81.9
[2023-10-16] MEDS: SODIUM CHLORIDE 0.9% 1,000 ML IV SCH (01:49)
[2023-10-16] MEDS: PIPERACILLIN/TAZOBACTAM 4.5 GM/100 ML BAG IV ONE (01:49)
--- NOTE | 2023-10-16 02:19 | Magnetic Resonance Report ---
Exam(s): MRI MRCP EXAM: MR Abdomen Without Intravenous Contrast, MRCP Protocol CLINICAL HISTORY: Reason for exam: elevated lfts, acute amanda on u/s. TECHNIQUE: Multiplanar magnetic resonance images of the abdomen without intravenous contrast using MRCP protocol. COMPARISON: No relevant prior studies available. FINDINGS: Bile ducts: Unremarkable. No stones. No ductal dilation. Gallbladder: Numerous small gallstones. Abnormal gallbladder wall edema and trace amount of pericholecystic fluid. Liver: Unremarkable. Pancreas: Unremarkable. No ductal dilation. Spleen: Unremarkable. No splenomegaly. Adrenals: Unremarkable. No mass. Kidneys and ureters: Unremarkable. No hydronephrosis. Stomach and bowel: Unremarkable. No obstruction. IMPRESSION: Gallstones with gallbladder wall edema and small amount of pericholecystic fluid. The findings are very concerning for acute cholecystitis. No bile duct dilatation. Electronically signed by: Isaías Lockwood MD 10/16/23 02:18 AM
--- NOTE | 2023-10-16 02:53 | History & Physical Report ---
Date of Service October 16, 2023 Assessment & Plan (1) Cholecystitis: (2) Abnormal LFTs: (3) Elevated lipase: (4) GERD (gastroesophageal reflux disease): Plan Acute cholecystitis- AST 390, ALT 220, alkaline phosphatase 502 and lipase 165 Laboratories had been essentially normal 2 days previously when seen in the ED Liver ultrasound consistent with acute cholecystitis MRCP shows acute cholecystitis with normal common bile duct N.p.o. Zosyn 4.5 g IV every 8 hours Pantoprazole 40 mg IV daily NSS + KCl 20 mEq at 100 mL/h Zofran 4 mg IV every 6 hours as needed Morphine sulfate 4 mg IV every 3 hours as needed for moderate to severe pain Patient has been seen by general surgery in the emergency department 3 weeks - Breast pumping as needed History of Present Illness Chief Complaint: The patient presents to the emergency department with complaint of abdominal pain, nausea and vomiting, symptoms that initially caused her to present to the emergency department 2 days ago with normal workup at that time. Primary Care Provider: Britni Loredo DO The patient is a 38-year-old female with a past medical history including von Willebrand disease, GERD and depression, who is 3 weeks , who presents to the emergency department with symptoms of severe epigastric and right upper quadrant pain, nausea and vomiting. She was initially seen at the emergency department 2 days ago for similar symptoms, with negative workup at that time. Liver tests are now abnormal, and liver ultrasound this evening was consistent with acute cholecystitis, and MRCP performed was also consistent with acute cholecystitis, and had normal common bile duct without stones Allergies Allergy/AdvReac Type Severity Reaction Status Date / Time sulfamethoxazole Allergy Intermediate Rash Verified 10/15/23 22:56 [From Bactrim] trimethoprim [From Bactrim] Allergy Intermediate Rash Verified 10/15/23 22:56 Home Medications Medication Instructions Recorded Confirmed Type diphenhydramine HCl 25 mg capsule 25 mg PO HS PRN Sleep 09/15/23 10/15/23 History (Benadryl) docusate sodium 100 mg capsule 100 mg PO DAILY 09/15/23 10/15/23 History (Colace) magnesium oxide 500 mg capsule 500 mg PO DAILY 09/15/23 10/15/23 History omeprazole 20 mg capsule,delayed 20 mg PO DAILY 09/15/23 10/15/23 History release clobetasol 0.05 % scalp solution 1 applic topical BID PRN Itching 10/12/23 10/15/23 History dicloxacillin 500 mg capsule 500 mg PO Q6 10/12/23 10/15/23 History vits no.130-ferrous fum 1 tab PO DAILY 10/12/23 10/15/23 History 27 mg iron-folic acid 800 mcg tablet ( Vitamin) sertraline 100 mg tablet 100 mg PO DAILY 10/15/23 10/15/23 History Past Med/Surg History Medical History (Updated 10/16/23 @ 04:07 by Odell Sherman MD) GERD (gastroesophageal reflux disease) Psoriasis Von Willebrand disease Surgical History H/O wisdom tooth extraction Family History Grandfather (Paternal) Diabetes Grandfather (Maternal) Hypertension Grandfather (Paternal) Hypertension Grandmother (Paternal) Hypertension Social History Smoking Status: Never smoker Second Hand Exposure: No; Hx Alcohol Use: Yes Hx Substance Use: No Preferred Language: Lithuanian Communication Ability: Effective 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 Ability: Normal 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 Beliefs That Will Affect Care: None marital status: Current Living Situation: Spouse Current Living Situation Comment: Lives with Sebastián, 2 cats and a dog current occupational status: unemployed Feels Safe at Home: Yes Safety Concerns: Feels Safe At This Time Diet: regular Gender Identity: Female Assistive Devices: None Review of Systems Review of Systems: The patient denies chest pain, palpitations, shortness of breath, dyspnea on exertion, cough, lower extremity swelling, sore throat, fevers, chills, sweats, blood in urine or stool, dysuria, urinary frequency or urgency, lightheadedness, dizziness, headache, memory loss, loss of consciousness, rash, abnormal bruising or bleeding, imbalance, focal or generalized weakness, numbness or tingling in arms or legs, generalized arthralgias or myalgias, neck pain, or night sweats. The review of systems is otherwise negative other than for that already noted above, and at least 10 systems have been reviewed. Physical Exam Physical Exam: The patient is awake, alert and oriented 3, well developed and well nourished, normocephalic and atraumatic, lying in bed and in no acute distress. HEENT--PERRL, EOMI, mucous membranes and oropharynx mildly dry. Neck--supple. No JVD. No bruits. Thyroid normal, trachea midline, no adenopathy. Heart--normal S1 and S2. No murmurs, rubs or gallops. Lungs--clear bilaterally, no respiratory distress, no accessory muscle use. Abdomen--normal bowel sounds and soft. Nontender post pain medication. Nondistended, no hernias or masses, no organomegaly. Extremities--no cyanosis or clubbing. No edema. Dermatologic--normal skin turgor, normal color, no abnormal lymph nodes, no rash. Neurologic--cranial nerves II through XII grossly intact. Rheumatologic--normal range of motion. Psychiatric--normal affect. Results & Data Results & Data Vital Signs (Past 12 Hours) Vital Signs Temp Pulse Pulse Resp BP BP Pulse Ox 10/16/23 02:00 62 18 127/89 98 10/16/23 00:42 78 20 123/87 97 10/16/23 00:24 82 18 123/87 97 10/15/23 22:32 74 10/15/23 22:24 72 18 135/91 99 10/15/23 21:46 36.9 C 84 20 127/91 98 O2 Del Method 10/16/23 02:00 Room Air 10/16/23 00:42 Room Air 10/16/23 00:24 Room Air 10/15/23 22:32 10/15/23 22:24 Room Air 10/15/23 21:46 Room Air Laboratory Results Laboratory Results WBC 7.51 K/ul (4.8-10.8) 10/15/23 22:07 RBC 4.51 M/uL (4.20-5.40) 10/15/23 22:07 Hgb 13.2 g/dl (12.0-16.0) 10/15/23 22:07 Hct 39.8 % (37.0-47.0) 10/15/23 22:07 MCV 88.2 fL (80.0-100.0) 10/15/23 22:07 MCH 29.3 pg (25.0-34.0) 10/15/23 22:07 MCHC 33.2 g/dL (32.0-36.0) 10/15/23 22:07 RDW Std Deviation 38.8 fL (36.4-46.3) 10/15/23 22:07 RDW Coeff of Oswaldo 12.0 % (11.5-14.5) 10/15/23 22:07 Plt Count 256 K/uL (130-400) 10/15/23 22:07 MPV 10.3 fL (9.4-12.4) 10/15/23 22:07 Immature Gran % (Auto) 0.3 % 10/15/23 22:07 Neut % (Auto) 68.1 % 10/15/23 22:07 Lymph % (Auto) 19.3 % 10/15/23 22:07 [place]ata % (Auto) 9.6 % 10/15/23 22:07 Eos % (Auto) 2.3 % 10/15/23 22:07 Baso % (Auto) 0.4 % 10/15/23 22:07 Neut # (Auto) 5.12 K/uL (1.40-6.50) 10/15/23 22:07 Lymph # (Auto) 1.45 K/uL (1.20-3.40) 10/15/23 22:07 [place]apata # (Auto) 0.72 K/uL (0.11-0.59) H 10/15/23 22:07 Eos # (Auto) 0.17 K/uL (0.00-0.50) 10/15/23 22:07 Baso # (Auto) 0.03 K/uL (0.00-0.20) 10/15/23 22:07 Immature Gran # (Auto) 0.02 K/uL (0.01-0.20) 10/15/23 22:07 Sodium 139 mmol/L (136-145) 10/15/23 22:07 Potassium 3.7 mmol/L (3.5-5.1) 10/15/23 22:07 Chloride 103 mmol/L (98-107) 10/15/23 22:07 Carbon Dioxide 26 mmol/L (21-32) 10/15/23 22:07 Anion Gap 10 (3-11) 10/15/23 22:07 BUN 13 mg/dl (6-23) 10/15/23 22:07 Creatinine 0.99 mg/dl (0.6-1.2) 10/15/23 22:07 Est Cr Clr Drug Dosing 70.7 ml/min 10/15/23 22:07 Est GFR ( Amer) 85.0 ml/min 10/15/23 22:07 Est GFR (Non-Af Amer) 73.3 ml/min 10/15/23 22:07 BUN/Creatinine Ratio 13.1 (10-20) 10/15/23 22:07 Glucose 128 mg/dl (70-99(Fasting)) H 10/15/23 22:07 Calcium 9.6 mg/dl (8.6-10.3) 10/15/23 22:07 Total Bilirubin 0.9 mg/dl (0.2-1.0) 10/15/23 22:07 AST 390 U/L (13-39) H 10/15/23 22:07 ALT 220 U/L (7-52) H 10/15/23 22:07 Alkaline Phosphatase 502 U/L (34-104) H 10/15/23 22:07 Total Protein 7.6 gm/dl (6.0-8.3) 10/15/23 22:07 Albumin 4.4 gm/dl (3.4-5.0) 10/15/23 22:07 Globulin 3.2 gm/dl (2.5-4.0) 10/15/23 22:07 Albumin/Globulin Ratio 1.4 (0.9-2) 10/15/23 22:07 Lipase 165 U/L (11-82) H 10/15/23 22:07 Urine Color Dark Yellow 10/16/23 Unknown Urine Appearance Cloudy (Clear) A 10/16/23 Unknown Urine pH 7.0 (4.5-7.5) 10/16/23 Unknown Ur Specific [place] 1.023 (1.000-1.030) 10/16/23 Unknown Urine Protein Trace (Negative) H 10/16/23 Unknown Urine Glucose (UA) Negative (Negative) 10/16/23 Unknown Urine Ketones Trace (Negative) H 10/16/23 Unknown Urine Blood 2+ (Negative) H 10/16/23 Unknown Urine Nitrite Negative (Negative) 10/16/23 Unknown Urine Bilirubin Negative (Negative) 10/16/23 Unknown Urine Urobilinogen Negative (Negative) 10/16/23 Unknown Ur Leukocyte Esterase 3+ (Negative) H 10/16/23 Unknown Urine WBC (Auto) >30 /hpf (0-5) H 10/16/23 Unknown Urine RBC (Auto) 0-4 /hpf (0-4) 10/16/23 Unknown U Hyaline Cast (Auto) 0 /lpf (0-5) 10/16/23 Unknown U Epithel Cells (Auto) >30 /lpf (0-5) H 10/16/23 Unknown Urine Bacteria (Auto) 1+ (Negative) H 10/16/23 Unknown Urine Yeast Not Reportable 10/16/23 Unknown Urine Opiates Screen Neg (Neg) 10/16/23 Unknown Ur Methadone, Qual Neg (Neg) 10/16/23 Unknown Urine Barbiturates Neg (Neg) 10/16/23 Unknown Ur Phencyclidine (PCP) Neg (Neg) 10/16/23 Unknown U Amphetamin/Meth Scrn Neg (Neg) 10/16/23 Unknown MDMA (Ecstasy) Screen Neg (Neg) 10/16/23 Unknown U Benzodiazepines Scrn Neg (Neg) 10/16/23 Unknown Ur Cocaine Metabolite Neg (Neg) 10/16/23 Unknown U Marijuana (THC) Screen Neg (Neg) 10/16/23 Unknown Impressions Liver Ultrasound 10/15/23 22:51 Exam(s): US ABDOMEN LIMITED EXAM: US Abdomen Limited, Right Upper Quadrant CLINICAL HISTORY: Reason for exam: epigastric pain, elevated lft, post . TECHNIQUE: Real-time ultrasound of the right upper quadrant with image documentation. COMPARISON: No relevant prior studies available. FINDINGS: Liver: Unremarkable. No mass. No intrahepatic bile duct dilation. Gallbladder: Gallstones. A few small scattered gallbladder polyps. Mild gallbladder wall thickening at 3 mm. Small amount of pericholecystic fluid. Common bile duct: Unremarkable as visualized. No stones. No dilation. Pancreas: Unremarkable as visualized. Right kidney: No stones. No solid mass. No hydronephrosis. IMPRESSION: Gallstones with mild gallbladder wall thickening and pericholecystic fluid. The findings are concerning for acute cholecystitis. Electronically signed by: Isaías Lockwood MD 10/16/23 00:14 AM Cholangiopancreatography MRI 10/16/23 00:24 Exam(s): MRI MRCP EXAM: MR Abdomen Without Intravenous Contrast, MRCP Protocol CLINICAL HISTORY: Reason for exam: elevated lfts, acute amanda on u/s. TECHNIQUE: Multiplanar magnetic resonance images of the abdomen without intravenous contrast using MRCP protocol. COMPARISON: No relevant prior studies available. FINDINGS: Bile ducts: Unremarkable. No stones. No ductal dilation. Gallbladder: Numerous small gallstones. Abnormal gallbladder wall edema and trace amount of pericholecystic fluid. Liver: Unremarkable. Pancreas: Unremarkable. No ductal dilation. Spleen: Unremarkable. No splenomegaly. Adrenals: Unremarkable. No mass. Kidneys and ureters: Unremarkable. No hydronephrosis. Stomach and bowel: Unremarkable. No obstruction. IMPRESSION: Gallstones with gallbladder wall edema and small amount of pericholecystic fluid. The findings are very concerning for acute cholecystitis. No bile duct dilatation. Electronically signed by: Isaías Lockwood MD 10/16/23 02:18 AM Code Status & VTE Plan Code Status Full code VTE Prophylaxis Plan VTE Prophylaxis will be ordered: Yes PG Care Time/CCT Total # of Minutes Spent Total Time Spent with Patient: Total time spent is greater than 50% in coordination of care (as documented) at patient's floor/unit and/or counseling patient: Coding Level of Care Code 64683 INT INP/OBS CARE 2/55MIN Diagnoses Cholecystitis K81.9 Abnormal LFTs R79.89 Elevated lipase R74.8 GERD (gastroesophageal reflux disease) K21.9
[2023-10-16] MEDS: NSS + 20MEQ KCL 20 MEQ/1,000 ML BAG IV SCH (05:26)
[2023-10-16 06:27] LABS: Basophils # (auto) 0.02 K/uL (0.00-0.20); Basophils % (auto) 0.4 %; Eosinophils # (auto) 0.07 K/uL (0.00-0.50); Eosinophils % (auto) 1.3 %; Hematocrit (blood only) 34.1 % (37.0-47.0); Hemoglobin 11.4 g/dl (12.0-16.0); Immature Granulocytes # (auto) 0.02 K/uL (0.01-0.20); Immature Granulocytes % (auto) 0.4 %; Lymphocytes # (auto) 1.41 K/uL (1.20-3.40); Lymphocytes % (auto) 25.5 %; Mean Corpuscular Hemoglobin 29.4 pg (25.0-34.0); Mean Corpuscular Hgb Conc 33.4 g/dL (32.0-36.0); Mean Corpuscular Volume 87.9 fL (80.0-100.0); Mean Platelet Volume 10.4 fL (9.4-12.4); Monocytes # (auto) 0.61 K/uL (0.11-0.59); Neutrophils % (auto) 61.4 %; Platelet Count 227 K/uL (130-400); RDW Coefficient of Variation 12.1 % (11.5-14.5); RDW Standard Deviation 38.9 fL (36.4-46.3); Red Blood Count 3.88 M/uL (4.20-5.40); White Blood Count 5.53 K/ul (4.8-10.8)
[2023-10-16 06:44] LABS: Albumin Globulin Ratio 1.4 (0.9-2); Albumin Level 3.7 gm/dl (3.4-5.0); BUN Creatinine Ratio 11.8 (10-20); Bilirubin,Total 0.5 mg/dl (0.2-1.0); Calcium 8.5 mg/dl (8.6-10.3); Creatinine Clr Calc Pharmacy 75.3 ml/min; Est GFR (African American) 91.6 ml/min; Est GFR (Non-African American) 79.1 ml/min; Globulin 2.7 gm/dl (2.5-4.0); Total Protein 6.4 gm/dl (6.0-8.3)
[2023-10-16 07:11] LABS: Pregnancy Test, Serum Negative (Negative)
[2023-10-16 08:28] LABS: Partial Thromboplastin Time 28 Seconds (21-31); Prothrombin Time 10.5 Seconds (9.0-12.0)
--- NOTE | 2023-10-16 09:45 | Anesthesiology Consultation ---
Date of Service October 16, 2023 Assessment & Plan (1) Encounter for pre-operative examination: Chart Review Chart Review: Acceptable Risk for Surgery and Patient NOT seen in Pre Admission Testing Consults Requested none History Surgery Operation Date: 10/16/23 08:20 Proposed Procedures p Laparoscopic Cholecystectomy - Fanny Torres DO Height/Weight Height: 5 ft 5 in Weight: 62 kg Allergies Allergy/AdvReac Type Severity Reaction Status Date / Time sulfamethoxazole Allergy Intermediate Rash Verified 10/15/23 22:56 [From Bactrim] trimethoprim [From Bactrim] Allergy Intermediate Rash Verified 10/15/23 22:56 Medications Home Medications Medication Instructions Recorded Confirmed Last Taken diphenhydramine HCl 25 mg capsule 25 mg PO HS PRN Sleep 09/15/23 10/15/23 09/18/23 (Benadryl) docusate sodium 100 mg capsule 100 mg PO DAILY 09/15/23 10/15/23 10/15/23 (Colace) magnesium oxide 500 mg capsule 500 mg PO DAILY 09/15/23 10/15/23 10/14/23 omeprazole 20 mg capsule,delayed 20 mg PO DAILY 09/15/23 10/15/23 10/15/23 release clobetasol 0.05 % scalp solution 1 applic topical BID PRN Itching 10/12/23 10/15/23 Unknown dicloxacillin 500 mg capsule 500 mg PO Q6 10/12/23 10/15/23 10/15/23 08:00 vits no.130-ferrous fum 1 tab PO DAILY 10/12/23 10/15/23 10/15/23 27 mg iron-folic acid 800 mcg tablet ( Vitamin) sertraline 100 mg tablet 100 mg PO DAILY 10/15/23 10/15/23 10/14/23 Active Medications Generic Name Dose Route Start Last Admin Trade Name Freq PRN Reason Stop Dose Admin Potassium Chloride/Sodium Chloride 20 meq in 1,000 mls @ 100 mls/hr 10/16/23 04:42 10/16/23 05:26 Normal Saline W/20 Meq Kcl IV 11/15/23 04:41 100 mls/hr .Q10H DONNIE Administration Protocol NPO Date Last Intake of Fluids: 10/15/23 Time Last Intake of Fluids: 23:59 Date Last Intake of Solids: 10/15/23 Time Last Intake of Solids: 23:59 Past Medical History Medical History GERD (gastroesophageal reflux disease) Psoriasis Von Willebrand disease Past Family History Family History Grandfather (Paternal) Diabetes Grandfather (Maternal) Hypertension Grandfather (Paternal) Hypertension Grandmother (Paternal) Hypertension Past Surgical History Surgical History H/O wisdom tooth extraction Social History Smoking Status: Never smoker Hx Alcohol Use: Yes alcohol intake frequency: holidays/special occasions only Hx Substance Use: No substance use type: does not use Physical Exam Vital Signs Last Vital Signs Temp 97.9 F 10/16/23 07:18 Pulse 82 10/16/23 07:18 Resp 18 10/16/23 07:18 BP 127/83 10/16/23 07:18 Pulse Ox 98 10/16/23 07:18 O2 Del Method Room Air 10/16/23 07:18 Testing Laboratory Results 10/16/23 05:54 10/16/23 05:54 PT 10.5 Seconds (9.0-12.0) 10/16/23 05:54 INR 1.0 (0.9-1.1) 10/16/23 05:54 APTT 28 Seconds (21-31) 10/16/23 05:54 Urine Color Dark Yellow 10/16/23 Unknown Urine Appearance Cloudy (Clear) A 10/16/23 Unknown Urine pH 7.0 (4.5-7.5) 10/16/23 Unknown Ur Specific Willard 1.023 (1.000-1.030) 10/16/23 Unknown Urine Protein Trace (Negative) H 10/16/23 Unknown Urine Glucose (UA) Negative (Negative) 10/16/23 Unknown Urine Ketones Trace (Negative) H 10/16/23 Unknown Urine Nitrite Negative (Negative) 10/16/23 Unknown Ur Leukocyte Esterase 3+ (Negative) H 10/16/23 Unknown Urine WBC (Auto) >30 /hpf (0-5) H 10/16/23 Unknown Urine RBC (Auto) 0-4 /hpf (0-4) 10/16/23 Unknown U Hyaline Cast (Auto) 0 /lpf (0-5) 10/16/23 Unknown U Epithel Cells (Auto) >30 /lpf (0-5) H 10/16/23 Unknown Urine Bacteria (Auto) 1+ (Negative) H 10/16/23 Unknown
[2023-10-16] MEDS: PIPERACILLIN/TAZOBACTAM 4.5 GM in DEXTROSE 5% MINI-B 100 ML IV SCH (10:47)
[2023-10-16] MEDS: PANTOprazole 40 MG in SYRINGE 0 ML IV SCH (10:56)
[2023-10-16] MEDS: ONDANSETRON INJ 2 MG/ML 2 ML VIAL IV PRN (11:03)
[2023-10-16] MEDS ORDERED: fentaNYL citrate PF 100 MCG/2 ML VIAL ONE (12:32)
[2023-10-16] MEDS ORDERED: MIDAZOLAM HCL 1 MG/ML 2ML VIAL ONE (12:32)
[2023-10-16] MEDS ORDERED: ACETAMINOPHEN 1000 MG/100 ML IV IV ONE (13:01)
[2023-10-16] MEDS ORDERED: ATROPINE SULFATE 0.1 MG/ML 10ML SYR IV PRN (13:07)
[2023-10-16] MEDS ORDERED: HYDROmorphone INJ 2 MG/ML SYR/VIAL IV PRN (13:07)
[2023-10-16] MEDS ORDERED: ePHEDrine sulfate 50 MG/ML AMP IV PRN (13:07)
[2023-10-16] MEDS: BUPIVACAINE/EPINEPHRINE 0.5% MPF 1:200,000 30 ML VIAL ONE (14:36)
--- NOTE | 2023-10-16 14:53 | Operative Report ---
PG Post Operative Report Pre & Post Diagnosis Operation Date: 10/16/23 08:20 Pre-Op Diagnosis: ACUTE CHOLECYSTITITS Post-Op Diagnosis: ACUTE CHOLECYSTITITS I identified the patient and participated in the time-out.: Yes Procedure Operation Date: 10/16/23 08:20 Actual Procedures p Laparoscopic Cholecystectomy(Not Applicable) - Fanny Torres DO Surgeon Fanny Torres DO Dairy Tester ERICA Walsh Estimated Blood Loss 3 Findings Consistent with Post-Op Diagnosis Specimens Gallbladder Anesthesia Type General Indications Persistent RUQ pain, cholecystitis Description of Procedure The patient was brought back to the operating room placed on the operating room table in supine position. She was connected to cardiac and oxygen monitoring. SCDs were applied to bilateral lower extremities and supplemental O2 was provided. The patient was administered general anesthesia and a secure airway was obtained. The abdomen was prepped and draped in typical sterile fashion and a timeout was conducted. Local anesthetic was injected into the skin and subcutaneous tissue at the superior umbilical fold and a small stab incision was made with an 11 blade. The fascia was elevated with a towel clamp and a Veress needle was inserted. Once intra-abdominal access of the Veress needle was confirmed with a saline drop test. Pneumoperitoneum was established local pressure 15 mmHg. Once this pressure was reached, a 5 mm trocar was inserted using a 5 mm port for direct visualization. Additional local anesthetic was injected into the skin and subcutaneous tissues at the epigastric area and an incision was made large enough to hold an 11 mm trocar. An 11 mm trocar was inserted under direct visualization. 2 additional 5 mm trocars were inserted at right the subcostal margin under direct visualization after injecting local anesthetic. The patient was repositioned in reverse Trendelenburg and left side down. The gallbladder was grasped at the fundus. Adhesions to the omentum were lysed using blunt and cautery dissection. A [place] dissector was used to expose the cystic triangle. Once the cystic duct and artery were isolated, stones were noted in the cystic duct and these were milked back into the gallbladder. The cystic duct and artery were both ligated with 5 mm clips proximally 1 distally and each structure was transected. The gallbladder was then cauterized away from the liver bed. The gallbladder was placed in Endo Catch bag and removed from the abdomen through the epigastric incision. The gallbladder was placed in a label container sent to pathology for further analysis. A small amount of bleeding of the liver bed was was controlled using cautery. The right upper quadrant liver bed were copiously irrigated and suctioned until the effluent ran clear. The liver bed was checked multiple times for hemostasis. There was no bleeding from the surgical site. The clips were also inspected and remained intact. Excess pneumoperitoneum was evacuated. The fascia at the epigastric incision was closed using 0 Vicryl suture. 3-0 Vicryl suture was used to approximate the subcutaneous tissue at this location. All skin incisions were closed with 4-0 Vicryl suture. The abdomen was wiped clean with a saline soaked lap pad and dried. The incisions were then all sealed with Dermabond. The patient tolerated the procedure well. She was awakened from anesthesia, the secure airway was removed and she was transferred to recovery in stable condition I attest to the content of the Intraoperative Record and any orders documented therein. Any exceptions are noted below.
[2023-10-16] MEDS: DROPERIDOL 5 MG/2 ML VIAL IV PRN (15:10)
--- NOTE | 2023-10-16 15:14 | Anesthesiology Progress Note ---
Date of Service October 16, 2023 Anesthesia Post Procedure Vital Signs Vital Signs: Temp Pulse Pulse Pulse Resp BP BP 10/16/23 15:10 94 H 15 130/91 10/16/23 15:00 70 18 113/77 10/16/23 14:50 36.0 C L 64 17 104/70 10/16/23 12:58 36.4 C L 66 20 128/91 10/16/23 07:18 36.6 C 82 18 127/83 10/16/23 04:38 36.4 C L 74 16 141/88 H 10/16/23 04:21 20 10/16/23 02:00 62 18 127/89 10/16/23 00:42 78 20 123/87 10/16/23 00:24 82 18 123/87 10/15/23 22:32 74 10/15/23 22:24 72 18 135/91 10/15/23 21:46 36.9 C 84 20 127/91 Pulse Ox O2 Del Method O2 Flow Rate 10/16/23 15:10 97 Oxymask 5 10/16/23 15:00 100 Oxymask 5 10/16/23 14:50 97 Oxymask 5 10/16/23 12:58 96 Room Air 10/16/23 07:18 98 Room Air 10/16/23 04:38 97 Room Air 10/16/23 04:21 Room Air 10/16/23 02:00 98 Room Air 10/16/23 00:42 97 Room Air 10/16/23 00:24 97 Room Air 10/15/23 22:32 10/15/23 22:24 99 Room Air 10/15/23 21:46 98 Room Air Pain Intensity Abdomen: Pain Intensity: 0 Transfer of Care Handoff Completed per policy Notes Mental Status: alert / awake / arousable Patient Amnestic to Procedure: Yes Nausea / Vomiting: adequately controlled Pain: adequately controlled Airway Patency, RR, SpO2: stable & adequate BP & HR: stable & adequate Hydration State: stable & adequate Anesthetic Complications: no major complications apparent and Pt Satisfied with anesthetic care
[2023-10-16] MEDS ORDERED: oxyCODONE HCL IR 5 MG TAB (IMMEDIATE RELEASE) PO PRN (15:49)
--- NOTE | 2023-10-16 15:59 | Communication Note ---
Date of Service: October 16, 2023 Please refer to the H&P dictated earlier this morning for details of presentation on admission. In brief, the patient presented with abdominal pain, nausea, vomiting. Liver ultrasound was consistent with acute cholecystitis. Liver enzymes were elevated. MRCP shows normal CBD. General surgery consulted. It seems that the patient already has had cholecystectomy done by surgery. Because of her von Willebrand disease, hematology was consulted. Awaiting recommendations. The patient also had mild acute pancreatitis which seems to have resolved. Lipase normalized.
[2023-10-16] MEDS: DESMOPRESSIN ACETATE IV ONE (16:36)
[2023-10-16] MEDS: SODIUM CHLORIDE 0.9% IV ONE (16:36)
[2023-10-16] MEDS: MoRPHine SULFATE 4 MG/ML 1 ML CARP\\VIAL IV PRN (17:22)
[2023-10-17] MEDS: ACETAMINOPHEN 1,000 MG/100 ML VIAL IV PRN (06:38)
[2023-10-17 06:50] LABS: Basophils # (auto) 0.02 K/uL (0.00-0.20); Basophils % (auto) 0.3 %; Eosinophils # (auto) 0.06 K/uL (0.00-0.50); Eosinophils % (auto) 0.9 %; Hematocrit (blood only) 33.4 % (37.0-47.0); Hemoglobin 10.9 g/dl (12.0-16.0); Immature Granulocytes # (auto) 0.05 K/uL (0.01-0.20); Immature Granulocytes % (auto) 0.7 %; Lymphocytes # (auto) 1.77 K/uL (1.20-3.40); Lymphocytes % (auto) 25.6 %; Mean Corpuscular Hemoglobin 29.4 pg (25.0-34.0); Mean Corpuscular Hgb Conc 32.6 g/dL (32.0-36.0); Mean Platelet Volume 10.4 fL (9.4-12.4); Monocytes # (auto) 0.66 K/uL (0.11-0.59); Monocytes % (auto) 9.5 %; Neutrophils # (auto) 4.36 K/uL (1.40-6.50); Platelet Count 214 K/uL (130-400); RDW Coefficient of Variation 12.2 % (11.5-14.5); Red Blood Count 3.71 M/uL (4.20-5.40); White Blood Count 6.92 K/ul (4.8-10.8)
[2023-10-17 07:20] LABS: Albumin Globulin Ratio 1.3 (0.9-2); Albumin Level 3.6 gm/dl (3.4-5.0); BUN Creatinine Ratio 9.5 (10-20); Bilirubin,Total 0.5 mg/dl (0.2-1.0); Calcium 8.6 mg/dl (8.6-10.3); Creatinine Clr Calc Pharmacy 83.3 ml/min; Est GFR (African American) 103.6 ml/min; Est GFR (Non-African American) 89.4 ml/min; Globulin 2.7 gm/dl (2.5-4.0); Magnesium 1.8 mg/dl (1.7-2.4); Potassium 3.9 mmol/L (3.5-5.1); Total Protein 6.3 gm/dl (6.0-8.3)
--- NOTE | 2023-10-17 08:01 | Surgery Progress Note ---
<Statement entered by Fanny Torres, DO - 10/18/23 11:46> This patient was seen and examined, I agree with this plan Date of Service October 17, 2023 Assessment & Plan (1) Cholecystitis: Plan: POD#1 lap amanda WBC 6.9, Hbg 10.9, LFTs downtrending. vital signs are stable abdomen soft, mild expected marina incisional discomfort managed w/ Apap will advance diet as tolerates this AM if goes well may discharge to home later today dispo instructions reviewed, f/u in the office with dr. torres within 2 weeks Admission and Anticipated Discharge Date Admission Date: October 16, 2023 Subjective Patient is feeling well. Mild discomfort noted marina-incisionally, but controlled with tylenol. Some nausea last night she believes was related to coming out of anesthesia. Otherwise she is tolerating liquids at this point. Physical Exam Physical Exam: akake/alert, no distress Gastrointestinal (Abdomen): Inspection/Auscultation: + abdominal surgical incision (c/d/i with dermabond, some drainage noted to incision of epigastric site); abdomen not distended Percussion/Palpation: + abdomen tender (mild marina incisional discomfort to palpation ) and abdomen soft Results & Data Vital Signs (Past 12 Hours) Vital Signs Temp Pulse Resp BP Pulse Ox O2 Del Method 10/17/23 07:32 98.4 F 73 16 125/84 95 Room Air 10/17/23 03:08 97.9 F 53 L 18 118/74 95 Room Air 10/16/23 23:03 97.7 F 73 18 130/88 97 Room Air PG Care Time/CCT Total # of Minutes Spent Total Time Spent with Patient: Total time spent is greater than 50% in coordination of care (as documented) at patient's floor/unit and/or counseling patient: Coding Level of Care Code 27379 Post Operative Follow-Up Diagnoses Cholecystitis K81.9
--- NOTE | 2023-10-17 11:07 | Discharge Summary ---
Date of Service October 17, 2023 Admission HPI Per Admitting Provider The patient is a 38-year-old female with a past medical history including von Willebrand disease, GERD and depression, who is 3 weeks , who presents to the emergency department with symptoms of severe epigastric and right upper quadrant pain, nausea and vomiting. She was initially seen at the emergency department 2 days ago for similar symptoms, with negative workup at that time. Liver tests are now abnormal, and liver ultrasound this evening was consistent with acute cholecystitis, and MRCP performed was also consistent with acute cholecystitis, and had normal common bile duct without stones Admission Exam Per Admitting Provider The patient is awake, alert and oriented 3, well developed and well nourished, normocephalic and atraumatic, lying in bed and in no acute distress. HEENT--PERRL, EOMI, mucous membranes and oropharynx mildly dry. Neck--supple. No JVD. No bruits. Thyroid normal, trachea midline, no adenopathy. Heart--normal S1 and S2. No murmurs, rubs or gallops. Lungs--clear bilaterally, no respiratory distress, no accessory muscle use. Abdomen--normal bowel sounds and soft. Nontender post pain medication. Nondistended, no hernias or masses, no organomegaly. Extremities--no cyanosis or clubbing. No edema. Dermatologic--normal skin turgor, normal color, no abnormal lymph nodes, no rash. Neurologic--cranial nerves II through XII grossly intact. Rheumatologic--normal range of motion. Psychiatric--normal affect. Principal Diagnosis Acute cholecystitis status postcholecystectomy Von Willebrand disease with no issues with bleeding postoperatively 3 weeks Discharge Exam General: Awake, conversant Heart: S1, S2/regular rate and rhythm, no murmur rubs or gallops Lungs: Clear to auscultation bilaterally. Normal effort Abdomen: Soft/nontender/nondistended. No hepatosplenomegaly Extremities: No clubbing/cyanosis. No edema Behavior: Appropriate, cooperative Discharge Data Allergies Allergy/AdvReac Type Severity Reaction Status Date / Time sulfamethoxazole Allergy Intermediate Rash Verified 10/15/23 22:56 [From Bactrim] trimethoprim [From Bactrim] Allergy Intermediate Rash Verified 10/15/23 22:56 Consultations 10/16/23 02:24 Consult General Surgery Stat ED Decision to Admit Stat 10/16/23 08:23 Consult Oncology Routine Procedures Performed Operation Date: 10/16/23 08:20 Actual Procedures p Laparoscopic Cholecystectomy(Not Applicable) - Fanny Torres DO Ordered Studies 10/15/23 22:51 US RUQ [US liver] Stat 10/16/23 00:24 MR MRCP Stat Hospital Course (1) Cholecystitis: (2) Abnormal LFTs: (3) Elevated lipase: (4) GERD (gastroesophageal reflux disease): Plan Acute cholecystitis- Liver ultrasound confirmed acute cholecystitis MRCP showed normal CBD General surgery involved Patient is status post cholecystectomy done on 10/16/2023 Surgery has cleared the patient for discharge Patient is tolerating regular diet 3 weeks - Breast pumping as needed Von Willebrand disease The patient did not have any issues with bleeding perioperatively Total Time Total Time Spent Total Time Spent (In Minutes): 35 Discharge Plan Discharge Items Patient Disposition: Home - Self-Care Reason For Visit: ACUTE CHOLECYSTITITS, 3 WKS Discharge Diagnosis: laparoscopic cholecystectomy Activity: Per Instructions section Lifting: No more than 10 pounds Bathing Comment: may shower; no soaking in tubs/pools x 2 weeks Exercise/Sports: Wait until after follow-up appointment Driving/Machine Use: no driving while on narcotics for pain Non-emergency contact: Surgeon Call non-emergency contact if: you have any medication questions, your pain is not controlled, you have a fever, your temperature is above 101.5, your wound has increased redness, your wound has increased drainage and your wound pain has increased Follow-up/Referrals: Britni Loredo DO [Primary Care Provider] - Fanny Torres DO [Physician] - 10/30/23 9:30 am (please call to schedule follow up in clinic within 2 weeks ) Diet: Regular Addtl Attending Provider Instructions: You may purchase Tylenol and/or Ibuprofen over the counter if needed for additional pain control over the next few days. Take per manufacturers instructions You have skin glue over your incisions called dermabond. you may shower with this on. It will tend to dissolve and fall off within a couple weeks. Do not pick at the skin glue Pending Studies at Discharge: Yes Studies:: surgical pathology Stand-Alone Forms: My [facility] [employer] Medications and DC Order Prescriptions: New oxycodone 5 mg tablet 5 - 10 mg PO .[id number] PRN (Reason: pain, for initial therapy, max 6 tabs per day) Qty: 10 0RF Continued diphenhydramine HCl [Benadryl] 25 mg Capsule 25 mg PO HS PRN (Reason: Sleep) docusate sodium [Colace] 100 mg Capsule 100 mg PO DAILY omeprazole 20 mg Capsule,Delayed Release(Dr/Ec) 20 mg PO DAILY magnesium oxide 500 mg Capsule 500 mg PO DAILY dicloxacillin 500 mg capsule 500 mg PO Q6 Rx Instructions: STARTED 10/09/23 FOR 14 DAYS. clobetasol 0.05 % solution 1 applic TOPICAL BID PRN (Reason: Itching) Vitamin 27 mg iron- 800 mcg tablet 1 tab PO DAILY sertraline 100 mg tablet 100 mg PO DAILY Discharge Orders: Discharge Order (Routine); Ordered 10/17/23 Ordered By: Donnie Vásquez/Other Patient Handouts: Cholecystectomy Admission Data Admit Date/Time: 10/16/23 02:52 Attending Provider: Donnie Roque Admit Provider: Odell Sherman Primary Care Provider: Britni Loredo Other Providers: Fanny Torres; Odell Sherman; Mark Taylor Other Interventions: Discharge Summary Assessment (RN) Last Done: 10/17/23 12:33 Coding Level of Care Code 70762 INP/OBS DISCH >30 MIN Diagnoses Cholecystitis K81.9 Abnormal LFTs R79.89 Elevated lipase R74.8 GERD (gastroesophageal reflux disease) K21.9
[2023-10-17] MEDS: IBUPROFEN 200 MG TAB PO STA (12:11)
== END 2023-10-17 12:59 | disposition home or self-care (01) ==
LOC: ED 21:44 → SUATTDRO 10-16 02:52 → INTOOBSV 10-16 02:52 → 3W 10-16 02:52